=== PATIENT | female | born 1985 | race Caucasian/White ===

== ENCOUNTER 2019-02-08 06:22 | Day surgery (SDC) | payer BC ==
[2019-02-08] MEDS ORDERED: FENTAnyl 50 MCG/ML VIAL (08:39)
[2019-02-08] MEDS ORDERED: MIDAZOLAM 1 MG/ML 2 ML INJ ×2 (08:39)
== END 2019-02-08 10:39 | disposition home or self-care (01) ==
LOC: GIL 06:22
DX: K29.70 Gastritis, unspecified, without bleeding (principal); K44.9 Diaphragmatic hernia without obstruction or gangrene; K21.9 Gastro-esophageal reflux disease without esophagitis; K64.8 Other hemorrhoids; R19.4 Change in bowel habit
CPT/HCPCS: 43239; 88305